=== PATIENT | male | born 2000 | race African-American/Black ===

== ENCOUNTER 2023-07-28 20:43 | Emergency (ER) | payer MEDICAID ==
[~2023-07-28] VITALS: Ht 177.8 cm; Wt 78.0 kg
[2023-07-28 20:45] VITALS: BP 127/74; PULSE 96; RESP 16; TEMP 97.6; O2SAT 98
== END 2023-07-29 00:40 | disposition left against medical advice (07) ==
LOC: ER 20:43
DX: T65.91XA Toxic effect of unspecified substance, accidental (unintentional), initial encounter (principal); Z53.21 Procedure and treatment not carried out due to patient leaving prior to being seen by health care provider; X58.XXXA Exposure to other specified factors, initial encounter; Y93.89 Activity, other specified; Y92.89 Other specified places as the place of occurrence of the external cause; Y99.8 Other external cause status
CPT/HCPCS: 99281